=== PATIENT | female | born 1970 | race Caucasian/White ===

== ENCOUNTER 2020-09-01 02:59 | Emergency (ER) | payer OTHER ==
--- NOTE | 2020-09-01 03:19 | EDM.PDOC ---
<Pepe Martin - Last Filed: 09/01/20 05:15> ED HPI GENERAL MEDICAL PROBLEM - General Chief Complaint: Genitourinary Problem Stated Complaint: RIGHT SIDE LOWER BACK PAIN Time Seen by Provider: 09/01/20 03:16 - History of Present Illness INITIAL COMMENTS - FREE TEXT/NARRATIVE: 50-year-old female presents the emergency room with urinary frequency and some discomfort. Starting Saturday the patient noticed that she was voiding a lot more than normal and then at times she would get the sensation that she needed to void when she was voiding. This last evening and got much worse she had chills and thought she was going to pass out at one point actually laid down in the hallway. This did resolve and then she decided this time to get checked. Other than that she is not aware of any fevers or chills. Past medical history is really unremarkable she has not had problems with urinary tract infections. Patient has not had significant pain with this. She denies any possibility of being her spouse has had a vasectomy. abdomen Pain Score (Numeric/FACES): 3 - Related Data Allergies Allergy/AdvReac Type Severity Reaction Status Date / Time No Known Allergies Allergy Verified 09/01/20 03:20 Home Meds: Home Meds Cefdinir [Omnicef] 300 mg PO BID #14 cap 09/01/20 [Rx] ED ROS GENERAL - Review of Systems Review Of Systems: See Below Constitutional: Reports: Chills HEENT: Reports: No Symptoms, Vertigo Cardiovascular: Reports: No Symptoms Endocrine: Reports: No Symptoms GI/Abdominal: Reports: No Symptoms : Reports: Frequency, Urgency, Other (Has had some right-sided flank discomfort) Neurological: Reports: No Symptoms ED EXAM, GENERAL - Physical Exam Exam: See Below Exam Limited By: No Limitations General Appearance: Alert, No Apparent Distress Head: Atraumatic, Normocephalic Neck: Normal Inspection, Supple, Non-Tender, Full Range of Motion. No: Lymphadenopathy (L), Lymphadenopathy (R) Respiratory/Chest: No Respiratory Distress, Lungs Clear, Normal Breath Sounds Cardiovascular: Regular Rate, Rhythm, No Edema, No Murmur GI/Abdominal: Normal Bowel Sounds, Soft, Non-Tender. No: Guarding, Rigid, Rebound Back Exam: Normal Inspection. No: CVA Tenderness (L), CVA Tenderness (R) Course - Re-Assessments/Exams Free Text/Narrative Re-Assessment/Exam: 09/01/20 03:59 Urinalysis is strongly suggestive of UTI while awaiting labs will give a gram of Rocephin IM 09/01/20 05:15 Labs reviewed patient is doing okay we will go and discharge home with oral antibiotics. Departure - Departure Time of Disposition: 05:16 Disposition: Home, Self-Care 01 Clinical Impression: Urinary tract infection - Discharge Information Prescriptions: Cefdinir [Omnicef] 300 mg PO BID #14 cap Instructions: Urinary Tract Infection, Adult, [id number] Referrals: Stephanie Chavarria MD [Primary Care Provider] - Forms: ED Department Discharge Additional Instructions: Return to the emergency room with any questions problems or worsening symptoms. You will be started on cefdinir, this is an antibiotic, take 1 twice daily until all gone start this September 02 first thing in the morning. The prescription for this was sent electronically to [facility] [employer] [facility]. Follow-up with your regular physician 3 to 4 days after you finish the antibiotic. Drink lots of fluids. <Bernarda Carver H - Last Filed: 09/01/20 09:41> Course - Vital Signs Last Recorded V/S: Last Vital Signs Temp 35.9 C L 09/01/20 03:13 Pulse 91 09/01/20 03:13 Resp 18 09/01/20 03:13 BP 129/85 09/01/20 03:13 Pulse Ox 100 09/01/20 03:13 - Orders/Labs/Meds Orders: Active Orders 24 hr Category Date Time Status CULTURE URINE [MREF] Stat Lab 09/01/20 03:15 Received Labs: Laboratory Tests 09/01/20 09/01/20 09/01/20 Range/Units 03:15 04:00 04:00 WBC 8.79 (3.98-10.04) K/mm3 RBC 4.18 (3.98-5.22) M/mm3 Hgb 12.2 (11.2-15.7) gm/dl Hct 37.7 (34.1-44.9) % MCV 90.2 (79.4-94.8) fl MCH 29.2 (25.6-32.2) pg MCHC 32.4 (32.2-35.5) g/dl RDW Std Deviation 44.1 (36.4-46.3) fL Plt Count 178 L (182-369) K/mm3 MPV 12.7 H (9.4-12.3) fl Neut % (Auto) 80.0 H (34.0-71.1) % Lymph % (Auto) 12.1 L (19.3-51.7) % [place] % (Auto) 6.8 (4.7-12.5) % Eos % (Auto) 0.6 L (0.7-5.8) Baso % (Auto) 0.5 (0.1-1.2) % Neut # (Auto) 7.04 H (1.56-6.13) K/mm3 Lymph # (Auto) 1.06 L (1.18-3.74) K/mm3 [place] # (Auto) 0.60 H (0.24-0.36) K/mm3 Eos # (Auto) 0.05 (0.04-0.36) K/mm3 Baso # (Auto) 0.04 (0.01-0.08) K/mm3 Sodium 141 (136-145) mEq/L Potassium 3.8 (3.5-5.1) mEq/L Chloride 106 (98-107) mEq/L Carbon Dioxide 24 (21-32) mEq/L Anion Gap 14.8 (5-15) BUN 12 (7-18) mg/dL Creatinine 0.9 (0.55-1.02) mg/dL Est Cr Clr Drug Dosing 86.83 mL/min Estimated GFR (MDRD) > 60 (>60) mL/min BUN/Creatinine Ratio 13.3 L (14-18) Glucose 90 (70-99) mg/dL Calcium 8.3 L (8.5-10.1) mg/dL Total Bilirubin 0.8 (0.2-1.0) mg/dL AST 18 (15-37) U/L ALT 21 (14-59) U/L Alkaline Phosphatase 77 (46-116) U/L Total Protein 7.0 (6.4-8.2) g/dl Albumin 3.7 (3.4-5.0) g/dl Globulin 3.3 gm/dL Albumin/Globulin Ratio 1.1 (1-2) Urine Color Yellow (Yellow) Urine Appearance Cloudy H (Clear) Urine pH 6.5 (5.0-8.0) Ur Specific [place] > or = 1.030 (1.005-1.030) Urine Protein 3+ H (Negative) Urine Glucose (UA) Negative (Negative) Urine Ketones 2+ H (Negative) Urine Occult Blood 3+ H (Negative) Urine Nitrite Positive H (Negative) Urine Bilirubin Negative (Negative) Urine Urobilinogen 0.2 (0.2-1.0) Ur Leukocyte Esterase 1+ H (Negative) Urine RBC Too numerous to cnt H (0-5) /hpf Urine WBC 20-30 H (0-5) /hpf Ur Squamous Epith Cells Not seen (0-5) /hpf Urine Bacteria Many H (FEW) /hpf Urine Mucus Not seen (FEW) /hpf Meds: Medications Discontinued Medications Generic Name Dose Route Start Last Admin Trade Name Freq PRN Reason Stop Dose Admin Ceftriaxone Sodium 1 gm/ 0 gm 09/01/20 04:00 09/01/20 04:09 Lidocaine HCl 2.1 ml IM 1 inj Q24H ARTUR Administration Ceftriaxone Sodium 2 gm/ 100 mls @ 200 mls/hr 09/01/20 04:00 Sodium Chloride IV Q24H ARTUR Sodium Chloride 1,000 mls @ 999 mls/hr 09/01/20 03:49 09/01/20 04:03 Normal Saline IV 09/01/20 04:49 Not Given ONETIME ONE Sepsis Event Note (ED) - Focused Exam Vital Signs: Vital Signs Temp Pulse Resp BP Pulse Ox 09/01/20 03:13 35.9 C L 91 18 129/85 100
[2020-09-01] MEDS ORDERED: Sodium Chloride 0.9% 1,000 ML IV ONE (03:49)
[2020-09-01] MEDS ORDERED: cefTRIAXone 2 GM in Sodium Chloride 0.9% 100 ML IV SCH (04:00)
[2020-09-01] MEDS ORDERED: cefTRIAXone 1 GM, Lidocaine 1% 2.1 ML IM SCH ×2 (04:00)
== END 2020-09-01 05:29 | disposition home or self-care (01) ==
LOC: JD.ED 02:59
DX: N39.0 Urinary tract infection, site not specified (principal)
CPT/HCPCS: 36415; 80053; 81001; 85025; 87086; 87088; 87186; 96372; 99283; J0696